=== PATIENT | female | born 1960 | race Caucasian/White ===

== ENCOUNTER → 2019-09-08 13:17 | Outpatient (CLI) | payer BC, SELFPAY ==
--- NOTE | 2019-09-08 13:22 | XR_ITS ---
PROCEDURE: XR SACROILIAC JOINT BI MIN 3V CLINICAL INDICATION: SACROILITIS Pain COMPARISON: No exams were available for comparison FINDINGS: No fracture or dislocation. No lytic or blastic change. There is normal mineralization. The joint spaces are well-preserved. No significant degenerative/arthritic changes. No erosive changes evident. Other findings:No evidence of fusion or lytic change IMPRESSION: Negative SI joints Dictated by: Harry Helms MD 09/08/2019 14:32 Electronically signed by Harry Helms MD in [place] 09/08/2019 14:32
== END ==
PROVIDERS: PCP Internal Medicine Adolescent Medicine; Visit Provider Internal Medicine Adolescent Medicine
DX: M46.1 Sacroiliitis, not elsewhere classified (principal)
CPT/HCPCS: 72202

== ENCOUNTER → 2019-12-08 15:40 | Outpatient (CLI) | payer BC, SELFPAY ==
[2019-12-08 16:09] LABS: Basophils % 0.5 % (0.1-2.0); Eosinophils # 0.1 K/mm3 (0.0-0.4); Eosinophils % 1.1 % (0.1-12.0); Hematocrit 38.5 % (37.0-47.0); Hemoglobin 12.7 g/dL (12.2-16.2); Lymphocytes # 2.2 K/mm3 (0.7-4.5); Lymphocytes % 35.2 % (10-50); Mean Corpuscular HGB Conc 32.9 g/dL (31.8-35.4); Mean Corpuscular Hemoglobin 32.6 pg (27.0-31.2); Mean Platelet Volume 7.8 fl (7.4-10.4); Monocytes # 0.3 K/mm3 (0.1-1.0); Monocytes % 4.9 % (1.7-9.3); Neutrophils # 3.7 K/mm3 (1.8-7.8); Neutrophils % 58.4 % (37.0-80.0); Platelet Count 247 K/mm3 (142-424); Red Blood Count 3.89 M/mm3 (4.20-5.40); Red Cell Distribution Width 15.9 % (11.5-17.5); White Blood Count 6.3 K/mm3 (4.8-10.8)
--- NOTE | 2019-12-08 16:23 | CT_ITS ---
PROCEDURE: CT ABDOMEN PELVIS WO/W CON CLINICAL INDICATION: ABD PAIN, RLQ Lower abdominal pain, right lower quadrant pain COMPARISON: No exams were available for comparison TECHNIQUE: IV Contrast: 75ML OPTIRAY 350 Oral Contrast None Axial images obtained with sagittal and coronal reformats. All CT scans at the facility use one or more dose reduction, viz: automated exposure control, ma/kV adjustment per patient size (including targeted exams where dose is matched to indication, i.e. head), or iterative reconstruction technique. FINDINGS: LOWER THORAX: There are atelectatic changes in the lung bases. Are ABDOMEN & PELVIS: The liver, spleen, adrenal glands, pancreas, and gallbladder have an unremarkable appearance. Unenhanced images show no evidence of renal calculi. There is a small hypodensity of the left kidney at 1 cm and may be due to small renal cyst. No intestinal obstruction or free air. Unremarkable appendix. There is colonic diverticulosis. There is minimal thickening of the wall of the sigmoid colon in its mid aspect with mild thickening of a diverticulum along the lateral aspect of the sigmoid colon. There is some minimal stranding of the fat in this region. Mild non complicated diverticulitis is a consideration. No abscess or perforation. There has been a prior hysterectomy. There is a small umbilical hernia which contains fat. No acute bony findings. Degenerative changes of the spine. IMPRESSION: Colonic diverticulosis with possible mild diverticulitis of the sigmoid colon. No abscess or perforation. Dictated by: Harry Helms MD 12/09/2019 07:05 Harry Helms MD in [place] 12/09/2019 07:05
[2019-12-08 16:33] LABS: Chloride 102 mmol/L (98-107); Potassium 3.8 mmoL/L (3.5-5.1); Sodium 141 mmol/L (136-145)
[2019-12-08 16:35] LABS: Amylase 73 U/L (30-110); Blood Urea Nitrogen 14 mg/dl (7-17); Estimated Glomerular Filt Rate 73 ml/min (>60); GFR (African American) 89 ML/MIN (>60)
[2019-12-08 16:36] LABS: Alanine Aminotransferase 18 U/L (12-78); Albumin Level 4.8 g/dl (3.5-5.0); Albumin/Globulin Ratio 1.7 (1.1-1.8); Alkaline Phosphatase 72 U/L (38-126); Anion Gap 13.8 mEq/L (5-15); Aspartate Amino Transferase 27 U/L (14-36); Bilirubin,Total 0.7 mg/dl (0.2-1.3); Calcium 9.9 mg/dl (8.4-10.2); Carbon Dioxide 29 mmol/L (22.0-30.0); Globulin 2.9 g/dL (1.3-3.2); Glucose 115 mg/dl (74-100); Lipase 143 U/L (23-300); Total Protein,Serum 7.7 g/dl (6.3-8.2)
== END ==
PROVIDERS: PCP Internal Medicine Adolescent Medicine; Visit Provider Internal Medicine Adolescent Medicine
DX: R10.31 Right lower quadrant pain (principal)
CPT/HCPCS: 36415; 74178; 80053; 82150; 83690; 85025; Q9967

== ENCOUNTER → 2020-05-12 10:35 | Outpatient (CLI) | payer BC, SELFPAY ==
[2020-05-12 11:39] LABS: Coronavirus 19 IgG Antibody Positive (Negative); Coronavirus 19 IgM Antibody Negative (Negative)
== END ==
PROVIDERS: Visit Provider Internal Medicine Gastroenterology
DX: Z01.812 Encounter for preprocedural laboratory examination (principal); Z20.822 Contact with and (suspected) exposure to COVID-19; Z12.11 Encounter for screening for malignant neoplasm of colon
CPT/HCPCS: 36415; 86328

== ENCOUNTER 2020-05-14 07:26 | Day surgery (SDC) | payer BC, SELFPAY ==
[2020-05-04 10:02] VITALS: BMI 25.6
[2020-05-14 07:52] VITALS: BP 140/87; PULSE 109; RESP 16; TEMP 36.1
[2020-05-14 08:08] LABS: POC Glucose,Bedside 135 (70-110)
--- NOTE | 2020-05-14 08:08 | P.PN_ITS ---
[facility] Anesthesia Checklist - Patient Identification Patient Identification: Arm Band - Structural Data Admitted From: Home Planned Operative Procedure/s: colonoscopy Consent for Planned Operative Procedure(s) Verified: Yes Verified Documents: Surgical Consent, History and Physical - NPO Status Verified Time NPO: 00:00 - Additional verifications Anesthesia Reactions: No - Airway Assessment C-Spine Mobility Assessed: Yes (mp2) TMJ Mobility Assessed: Yes Dentition: Good Dentition - Neurological Assessment Level of Consciousness: Awake, Alert - Anesthesia Plan Anesthesia Risk discussed: Yes Anesthesia Plan: Verified ASA Class: II Anesthesia Type: MAC [facility] History I have reviewed the patient's past medical history: Yes Medical History: Reports:: Diabetes Mellitus Type 2, Hyperlipidemia, Hypertension Denies:: Cancer, Diabetes Mellitus Type 1, Internal Pacemaker, MRSA, Seizures *Have you ever received a pneumonia vaccine?: No *Have you received a flu vaccine this season?: Yes Anesthesia experience/problems:: nac Other Surgeries: Yes: Hysterectomy-Partial, Other. No: Pacemaker Amputation: No Fractures: No - *Social History Last grade of school completed: High school graduate Smoking Status: Never smoker Alcohol Intake: never Substance Use Type: denies use *Occupational Status:: retired Housing: house Household Members: spouse *Travel in the last 8 weeks: None Family Hx:: Cancer, Diabetes, Hypertension
--- NOTE | 2020-05-14 08:29 | P.PCN_ITS ---
[facility] Procedure Note Procedure Note:: Colonoscopy Procedure Report: Colonoscopy with cold snare polypectomy Endoscopist: Cristofer Mckeon II, MD Referring physician: Edwin Leigh M.D. Date of Procedure: May 14, 2020 Equipment: Olympus 190 variable stiffness pediatric colonoscope Sedation: MAC sedation Indication: Mrs. Worthington is a 60-year-old female who is here for diagnostic colonoscopy secondary to her bout of diverticulitis in January 2020 or February 2020. She had lower abdominal pain and pressure but this has resolved. The patient does state that her father had colon cancer at the age of 63 and her paternal grandmother had colon cancer in her 80s. The patient reports no present abdominal pain, weight loss, change in her bowel habits or rectal bleeding. She did have her first colonoscopy 8 or 9 years ago at which time polyps were removed. Her last colonoscopy in 2017 (Dr. Luke Antunez) was normal. The patient has had prior partial hysterectomy. Procedure: Prior to the procedure, a history and physical exam was performed, and patient's medications and allergies were reviewed. The risks, benefits and alternatives of the sedation and procedure were discussed with the patient. All questions were answered and informed consent was obtained. The patient was brought to the procedure room. Patient identification and proposed procedure were verified by the physician and the nurse. The patient was placed in a left lateral decubitus position and the scope was passed under direct vision. Throughout the procedure, the patient's blood pressure, pulse, and oxygen saturations were monitored continuously. The colonoscopy was accomplished without difficulty. The patient tolerated the procedure well. Findings: On digital rectal examination there was normal rectal tone. There were no external hemorrhoids. The colonoscope was introduced through the anal canal to the rectum and advanced to the cecum. The ileocecal valve and appendiceal orifice were identified. The scope was advanced a short distance into the ileum which appeared grossly normal. The scope was then withdrawn into the colon. The cecum, ascending and transverse colon and mucosa were grossly normal. There was a 4 to 5 mm polyp in the descending colon removed via cold snare polypectomy. There were scattered extensive diverticuli throughout the descending and sigmoid colon (LEFT colon). The rectum itself was normal. Upon retroflexion within the rectum there were grade 1-2 internal hemorrhoids. The preparation was excellent throughout with [place] Preparation Score of 9. The cecal time was 12 minutes. Impression: 1. Diminutive descending colon polyp 2. Extensive left-sided diverticulosis 3. Grade 1-2 internal hemorrhoids Plan: Based upon the adenomatous polyp and the patient's family history, I would recommend repeat surveillance colonoscopy again in 5 years. I will discussed dietary measures and bulk fiber supplementation on a long-term daily maintenance basis.
[2020-05-14 08:38] VITALS: O2SAT 97
[2020-05-14 08:50] VITALS: BP 91/50; PULSE 89; RESP 18; TEMP 36.4; O2SAT 97
[2020-05-14 09:00] VITALS: BP 104/49; PULSE 91; RESP 18; O2SAT 97
[2020-05-14 09:05] VITALS: BP 106/70; PULSE 94; RESP 18; O2SAT 96
[2020-05-14 09:25] VITALS: BP 110/69; PULSE 91; RESP 18; O2SAT 97
== END 2020-05-14 09:36 | disposition home or self-care (01) ==
PROVIDERS: PCP Internal Medicine Adolescent Medicine; Visit Provider Internal Medicine Gastroenterology
PROC: 0DJD8ZZ Inspection of Lower Intestinal Tract, Via Natural or Artificial Opening Endoscopic (ICD-10-PCS; CPT 45378; principal; 2020-05-14 08:30)
DX: K57.30 Diverticulosis of large intestine without perforation or abscess without bleeding (principal); Z80.0 Family history of malignant neoplasm of digestive organs; Z86.010 Personal history of colon polyps; K63.5 Polyp of colon; K64.0 First degree hemorrhoids; E11.9 Type 2 diabetes mellitus without complications; E78.5 Hyperlipidemia, unspecified; I10 Essential (primary) hypertension; Z80.9 Family history of malignant neoplasm, unspecified; Z83.3 Family history of diabetes mellitus; Z82.49 Family history of ischemic heart disease and other diseases of the circulatory system; Z79.899 Other long term (current) drug therapy
CPT/HCPCS: 45385; 82962

== ENCOUNTER → 2020-06-09 12:19 | Outpatient (CLI) | payer BC, SELFPAY ==
[2020-06-09 13:11] LABS: Basophils % 0.5 % (0.1-2.0); Eosinophils # 0.1 K/mm3 (0.0-0.4); Eosinophils % 1.8 % (0.1-12.0); Hematocrit 34.4 % (37.0-47.0); Hemoglobin 11.4 g/dL (12.2-16.2); Lymphocytes # 1.9 K/mm3 (0.7-4.5); Lymphocytes % 44.3 % (10-50); Mean Corpuscular HGB Conc 33.2 g/dL (31.8-35.4); Mean Corpuscular Hemoglobin 31.5 pg (27.0-31.2); Mean Corpuscular Volume 94.8 fl (81-99); Mean Platelet Volume 8.3 fl (7.4-10.4); Monocytes # 0.3 K/mm3 (0.1-1.0); Monocytes % 6.5 % (1.7-9.3); Neutrophils % 46.9 % (37.0-80.0); Platelet Count 214 K/mm3 (142-424); Red Blood Count 3.63 M/mm3 (4.20-5.40); Red Cell Distribution Width 15.7 % (11.5-17.5); White Blood Count 4.2 K/mm3 (4.8-10.8)
[2020-06-09 13:41] LABS: Chloride 105 mmol/L (98-107); Sodium 140 mmol/L (136-145)
[2020-06-09 13:43] LABS: Blood Urea Nitrogen 18 mg/dl (7-17); Estimated Glomerular Filt Rate 85 ml/min (>60); GFR (African American) 103 ML/MIN (>60)
[2020-06-09 13:44] LABS: Alanine Aminotransferase 23 U/L (12-78); Albumin Level 4.8 g/dl (3.5-5.0); Albumin/Globulin Ratio 1.8 (1.1-1.8); Alkaline Phosphatase 77 U/L (38-126); Aspartate Amino Transferase 35 U/L (14-36); Bilirubin,Total 0.5 mg/dl (0.2-1.3); Calcium 10.2 mg/dl (8.4-10.2); Carbon Dioxide 24 mmol/L (22.0-30.0); Globulin 2.7 g/dL (1.3-3.2); Glucose 117 mg/dl (74-100); Magnesium 1.6 mg/dl (1.6-2.3); Total Protein,Serum 7.5 g/dl (6.3-8.2)
[2020-06-09 13:52] LABS: NT Pro Brain Natriuretic Pep. 22.9 pg/mL (0-125)
[2020-06-09 14:01] LABS: Free Thyroxine Index 2.9 ug/dL (5.93-13.13); T4 (Thyroxine) 9.5 ug/dl (5.53-11.0); Triiodothryronine (T3) Uptake 30 % (23.5-40.5)
[2020-06-09 14:14] LABS: Anion Gap 14.8 mEq/L (5-15); Potassium 3.8 mmoL/L (3.5-5.1)
== END ==
PROVIDERS: Visit Provider Internal Medicine Adolescent Medicine
DX: R06.00 Dyspnea, unspecified (principal); R00.0 Tachycardia, unspecified
CPT/HCPCS: 36415; 80053; 83735; 83880; 84436; 84443; 84479; 85025

== ENCOUNTER → 2020-06-18 11:39 | Outpatient (CLI) | payer BC, SELFPAY ==
--- NOTE | 2020-06-18 | CA_ITS ---
APPROVED REPORT Exam: Exercise Treadmill Technologist: Noemi Miller, Ht: 5 ft 4 in Wt: 153 lbs BSA: 1.75 m2 HR: 63 bpm BP: 138/61 mmHg Medical History Medications: Metformin,,,,, Losartan,,,,, Crestor,,,,, Bystolic,,,,, Stress Test Details Test: Manual Treadmill HR Resting HR: 70 bpm Max Heart Rate (APMHR): 159.059502 bpm Max HR Achieved: 122 bpm Target HR (85% APMHR): 135.200012 bpm % of APMHR: 76.73 Recovery HR: 80 bpm BP Resting BP: 136/71 mmHg Max BP: 152/82 mmHg Recovery BP: 141.0/62.0 mmHg ECG Resting ECG: NSR Clinical Reason for Termination: Dyspnea Exercise duration: 09:01 min Highest Stage Achieved: Exercise capacity: 10.1 METs Stress ECG Conclusion Stanley protocol completed 9:00 minutes. Max HR 122 % on PM 89 MET's 10.1 Test stopped due to SOA Symptoms: No CP, (+) SOA Arrhythmia/Ectopy: None ST-T Changes: <1.5mm ST Segment changes Conclusion: Negative stress but Pt did not acheive target HR Test Summary REST . . . . . . . Sitting REST . . . . . . . Standing REST 07:44 0.0 1.2 70 . 136/ 71 . . Stage 1 01:00 10.0 1.7 88 . . . . Stage 1 02:00 10.0 1.7 95 . . . . Stage 1 03:00 10.0 1.7 98 . 150/ 78 . . Stage 2 01:00 12.0 2.5 102 . . . . Stage 2 02:00 12.0 2.5 106 . . . . Stage 2 03:00 12.0 2.5 109 . 152/ 82 . . Stage 3 01:00 14.0 3.4 115 . . . . Stage 3 02:00 14.0 3.4 120 . . . . Stage 3 . . . . . . . Stage held Stage 3 . . . . . . . Protocol changed to Manual Treadmill Stage 3 03:00 10.0 3.0 121 . . . . Stage 3 . . . . . . . Stage resumed Stage 3 03:01 10.0 3.0 121 . . . Stop exercise at 09:01 RECOVERY 01:00 0.0 0.0 109 . . . . RECOVERY 02:00 0.0 0.0 92 . . . . RECOVERY 03:00 0.0 0.0 83 . 143/ 66 . . RECOVERY 04:00 0.0 0.0 80 . 143/ 66 . . RECOVERY 04:48 0.0 0.0 80 . 141/ 62 . . Electronically signed by : Benjamin Trejo, 06/20/2020 10:03:21
--- NOTE | 2020-06-18 11:44 | NM_ITS ---
APPROVED REPORT Exam: Nuclear Stress Test Indication: short of breath Patient Location: Outpatient Stress Tech: Noemi Miller [place] Tech:STELLA Barger RT(R)(N) Ht: 5 ft 4 in Wt: 153 lbs Bra Size: 36 d HR: 63 bpm BP: 138/61 mmHg BSA: 1.75 m2 BMI: 26.2 History: short of breath Procedure: Patient exercised on Stanley protocol 9 minutes and sec, resting heart rate 63 bpm, resting blood pressure 138/61 mmHg, with exercise maximum heart rate achived was 122 bpm which is Less than 85 % of the maximum predicted heart rate and blood pressure was 152/82 mmHg. Patient denied any complaint of chest pain. Patient has Good exercise capacity, achieved 10.1 METs of workload on treadmill, the blood pressure response to exercise was Adequate. Electrocardiogram Resting electrocardiogram shows sinus rhythm, with exercise there is less than 1.[address] segment depression noted from the baseline EKG. The EKG portion of the exercise Myoview was nondiagnostic as patient did not achieve the target heart rate. Cardiac Stress and Resting SPECT Images: Cardiac Stress and Resting SPECT images were obtained using technetium 99m Myoview 31.4 mCi stress and 9.96 mCi at rest. Gated SPECT for analysis of segmental wall motion and calculation of the ejection fraction also done, prone images were also obtained. Cardiac stress and resting SPECT images show uniform myocardial activity without segmental perfusion abnormality, computer derived ejection fraction is over 65% with no regional wall motion abnormality, right ventricle is normal size and contractility. Conclusion: 1. The EKG portion of the exercise Myoview was nondiagnostic as patient did not achieve the target heart rate. Patient has good exercise capacity achieved 10.1 METs of workload on treadmill, the blood pressure response to exercise was adequate, there was no exercise-induced chest discomfort. 2. No scintigraphic evidence of reversible ischemia seen at this level of exercise, computer derived ejection fraction is over 65% with no regional wall motion abnormality, right ventricle is normal size and contractility. Electronically signed by : Benjamin Trejo, 06/20/2020 10:18:13
== END ==
PROVIDERS: PCP Internal Medicine Adolescent Medicine; Visit Provider Internal Medicine Adolescent Medicine
DX: R06.00 Dyspnea, unspecified (principal)
CPT/HCPCS: 78452; 93017; A9502

== ENCOUNTER → 2021-06-07 10:16 | Outpatient (CLI) | payer BC, SELFPAY ==
--- NOTE | 2021-06-07 16:52 | MR_ITS ---
PROCEDURE INFORMATION: Exam: MR Left Lower Extremity Joint Without Contrast, Knee Exam date and time: 06/07/2021 4:59 PM Age: 61 years old Clinical indication: Pain; Knee; Left; Additional info: Acute pain of lt knee. Acute pain of left knee inferior to patella. Knee instability. No injury / trauma TECHNIQUE: Imaging protocol: MR of the Left lower extremity joint without contrast. Exam focused on the knee. COMPARISON: No relevant prior studies available. FINDINGS: Bones and cartilage: There is a subtle region of decreased T1 increased T2 signal in the subcortical bone marrow of the medial femoral condyle. Findings compatible with a small region of bone marrow edema. The overlying cartilage is intact. Cystic degenerative change could not be excluded. Incidental note made of scattered bone islands anterior aspect lateral femoral condyle as well as the mid aspect of the tibial plateau. Joint spaces: There is a small suprapatellar effusion. The mild regions of prepatellar bursitis are demonstrated. There is minimal fluid in the deep infrapatellar bursa compatible with bursitis. Medial meniscus: Intrasubstance degenerative changes are present within the posterior horn of the medial meniscus. There is no evidence of a meniscal tear. The anterior horn is intact. Lateral meniscus: The anterior and posterior horns of the lateral meniscus are intact. Anterior cruciate ligament: Unremarkable. No tear. Posterior cruciate ligament: The anterior and posterior cruciate ligaments are intact. The medial and lateral retinaculum are intact. The mediolateral collateral ligaments are intact. Medial capsule and supporting structures: Unremarkable. No tear. Lateral capsule and supporting structures: Unremarkable. No tear. Extensor mechanism of knee: The visualized portions of the quadriceps and patellar tendons are intact. Muscles: Unremarkable. Soft tissues: See Bones and cartilage finding. IMPRESSION: 1. Intrasubstance degenerative changes posterior horn medial meniscus. No evidence of meniscal tear. 2. Mild changes of prepatellar bursitis, deep infrapatellar bursitis. 3. Mild region of bone marrow edema medial femoral condyle. No findings to suggest a developing osteochondral lesion.
== END ==
PROVIDERS: PCP Internal Medicine Adolescent Medicine; Visit Provider Internal Medicine Adolescent Medicine
DX: M25.562 Pain in left knee (principal)
CPT/HCPCS: 73721

== ENCOUNTER → 2021-12-30 09:08 | Outpatient (CLI) | payer BC, SELFPAY ==
--- NOTE | 2021-12-30 09:11 | XR_ITS ---
FINAL REPORT CLINICAL HISTORY: Post menopause FINDINGS: DEXA BONE DENSITY Using L1-4, the bone mineral density of the spine is 1.078 g/cm2, corresponding to T-score of 0.3. Using the right hip, the bone mineral density of the femoral neck is 0.727 g/cm2, corresponding to a T-score of -1.1. Using the left hip, the bone mineral density of the femoral neck is 0.719 g/cm2, corresponding to a T-score of -1.2. FRAX 10 year fracture risk is 7.8 for a hip fracture and 0.6 for a major osteoporotic fracture. NOTE: T-score: Standard deviation compared with peak bone mass of young adult mean. *Following the recommendations of the International Society of Bone densitometry, classification of hip BMD is based on the lower of two T-scores; total hip or femoral neck. IMPRESSION: Diminished bone mineral density of the lumbar spine and hips consistent with osteopenia. Reviewed, Interpreted and Dictated by Nahum Boswell III, MD Transcribed by Kavitha Mays Authenticated and [facility]
== END ==
PROVIDERS: PCP Internal Medicine Adolescent Medicine; Visit Provider Internal Medicine Adolescent Medicine
DX: Z78.0 Asymptomatic menopausal state (principal); Z13.820 Encounter for screening for osteoporosis
CPT/HCPCS: 77080

== ENCOUNTER 2024-02-19 15:29 | Outpatient (CLI) | payer MEDICARE, SELFPAY ==
[2024-02-19 13:29] LABS: Basophils # 0.1 K/mm3 (0-0.2); Basophils % 1.2 % (0.1-2.0); Eosinophils # 0.2 K/mm3 (0.0-0.4); Hematocrit 39.4 % (37.0-47.0); Hemoglobin 12.9 g/dL (12.2-16.2); Lymphocytes # 1.7 K/mm3 (0.7-4.5); Mean Corpuscular HGB Conc 32.7 g/dL (31.8-35.4); Mean Corpuscular Hemoglobin 32.3 pg (27.0-31.2); Mean Corpuscular Volume 98.5 fl (81-99); Mean Platelet Volume 10.6 fl (7.4-10.4); Monocytes # 0.4 K/mm3 (0.1-1.0); Neutrophils # 2.7 K/mm3 (1.8-7.8); Neutrophils % 53.4 % (37.0-80.0); Platelet Count 205 K/mm3 (142-424); Red Cell Distribution Width 14.1 % (11.5-17.5)
[2024-02-19 14:38] LABS: Alanine Aminotransferase 23 U/L (12-78); Albumin/Globulin Ratio 2.2 (1.1-1.8); Alkaline Phosphatase 71 U/L (38-126); Anion Gap 13.9 mEq/L (5-15); Aspartate Amino Transferase 39 U/L (14-36); Bilirubin,Total 0.6 mg/dl (0.2-1.3); Blood Urea Nitrogen 24 mg/dl (7-17); Calcium 10.3 mg/dl (8.4-10.2); Carbon Dioxide 27 mmol/L (22.0-30.0); Chloride 104 mmol/L (98-107); Chol/HDL Ratio 2.9 (1-3.5); Cholesterol 147 mg/dl (140-200); Estimated Glomerular Filt Rate 72 ml/min (>60); GFR (African American) 87 ML/MIN (>60); Globulin 2.3 g/dL (1.3-3.2); Glucose 111 mg/dl (74-100); HDL Cholesterol 50 mg/dl (40-60); Potassium 4.9 mmoL/L (3.5-5.1); Sodium 140 mmol/L (136-145); Total Protein,Serum 7.3 g/dl (6.3-8.2); Triglycerides 120 mg/dl (30-150); VLDL Cholesterol 24 mg/dL (0-40)
[2024-02-19 14:46] LABS: Creatinine,Urine Random 72 mg/dL (Not Estab.)
[2024-02-19 14:48] LABS: Direct LDL Cholesterol 75.82 mg/dL (100-129)
[2024-02-19 14:54] LABS: Free T4 (Free Thyroxine) 1.23 ng/dl (0.78-2.19)
[2024-02-19 15:06] LABS: Hemoglobin A1C 6.5 % (4.0-6.0)
[2024-02-19 15:08] LABS: Thyroid Stimulating Hormone 1.58 uIU/mL (0.465-4.68)
[2024-02-19 15:17] LABS: HIV Combo NEGATIVE (Negative)
[2024-02-19 15:25] LABS: Hepatitis C Ab Qual. W/ RFX NEGATIVE (Negative)
[2024-02-19 16:02] LABS: 25-OH Vitamin D, Total 60.7 ng/mL (30-100)
== END 2024-02-19 23:59 | disposition home or self-care (01) ==
LOC: LAB.DROPOF 15:30
PROVIDERS: PCP Internal Medicine; Visit Provider Internal Medicine
DX: Z11.59 Encounter for screening for other viral diseases (principal); Z13.29 Encounter for screening for other suspected endocrine disorder; E11.9 Type 2 diabetes mellitus without complications; Z13.21 Encounter for screening for nutritional disorder; M85.80 Other specified disorders of bone density and structure, unspecified site; Z11.4 Encounter for screening for human immunodeficiency virus [HIV]; Z00.00 Encounter for general adult medical examination without abnormal findings; D64.9 Anemia, unspecified; Z13.220 Encounter for screening for lipoid disorders; E78.5 Hyperlipidemia, unspecified
CPT/HCPCS: 80053; 80061; 82043; 82306; 82570; 83036; 84439; 84443; 85025; 86803; 87389

== ENCOUNTER 2024-03-13 09:03 | Outpatient (CLI) | payer SELFPAY ==
--- NOTE | 2024-03-13 09:03 | CT_ITS ---
APPROVED REPORT Dental Therapist: CLINICAL INDICATION Risk stratification TECHNIQUE Image Acquisition: A 128 slice MDCT scanner (Bio[employer]orative Therapiesa View) was used for data acquisition. A noncontrast coronary calcium scan was performed. A CT attenuation threshold of 130 Hounsfield units (HU) was used for the detection of calcium in contiguous voxels of 1 sq mm in area to be counted as individual lesions. A tube voltage of 120 KVp was used. The patient received no medications prior to the coronary calcium CT. Image Reconstruction Transaxial images were reconstructed at 0.67 mm slide thickness. Data was reviewed interactively on an advanced workstation capable of 2 and 3-dimensional displays in all conventional reconstruction formats, including multiplanar reformations, maximum intensity projections, curved multiplanar reformations, and volume rendered reconstructions. When applicable, selected routine images describing the relevant coronary anatomy and pathology were saved and sent to PACS. Complications None Technical Quality Overall image quality was good. Total DLP (Dose-Length Product) is 179.9 mGy-cm. The reported value represents the total of one or more individual components during the CT acquisition of this date and at this time, and as such, the same value may appear in more than one CT report depending on the interpreting/reporting physicians. COMPARISON None FINDINGS CT Coronary Calcium Scoring LMA (Left Main Artery) = 0 LAD (Left Anterior Descending) = 0 LCX (Left Coronary Circumflex) = 0 RCA (Right Coronary Artery) = 0 Total Calcium Score = 8 using the AJ-130 method. There is also mild calcification present in the descending thoracic aorta. IMPRESSION -Coronary artery calcification is present. -Total Calcium Score (Agatston Score) = 8 using the AJ-130 method. -The observed calcium score of 8 is at 58th percentile for subjects of the same age, sex, and race/ethnicity. The interpretation of the calcium heart score is based on the following continuum*: 0 = no calcified plaque detected (risk of coronary artery disease is very low ??? less than 5%) 1-10 = calcium detected in extremely minimal levels (risk of coronary diseases is still low ??? less than 10%) 11-100 = mild levels of plaque detected with certainty (mild or minimal narrowing of heart arteries is likely) 101-400 = definite,at least moderate levels of plaque detected (relatively high risk of a heart attack within 3-5 years) >401-999 = extensive levels of plaque detected (high risk of heart attack, high levels of vascular disease are present, high likelihood of at least one significant coronary narrowing) *The calcium heart score quantifies the burden of coronary calcification/plaque in the coronary arteries. The calcium heart score does not evaluate the presence or the burden of non-calcified (i.e. soft) plaque. The coronary and cardiac findings of this Coronary Calcium CT were reviewed, reported, and signed by Edwin Alston MD (Video Player Mechanic). Conclusion Electronically signed by : Larissa Alston MD 03/15/2024 17:05:49
== END 2024-03-13 23:59 | disposition home or self-care (01) ==
PROVIDERS: PCP Internal Medicine; Visit Provider Internal Medicine
DX: I25.10 Atherosclerotic heart disease of native coronary artery without angina pectoris (principal)
CPT/HCPCS: 75571

== ENCOUNTER 2024-05-30 12:26 | Outpatient (CLI) | payer MEDICARE, SELFPAY ==
--- NOTE | 2024-05-30 12:31 | XR_ITS ---
FINAL REPORT CLINICAL HISTORY: Low back pain with radiation, no trauma COMPARISON: None FINDINGS: A single view of the pelvis was obtained. There is no acute fracture or dislocation. The visualized joint spaces are normally aligned. There is calcification in the projection of the left L5 transverse process. This calcification measures 5 mm and may represent a ureteral stone. IMPRESSION: No acute bony abnormality. Calcification left L5 transverse process may represent ureteral stone. Reviewed, Interpreted and Dictated by Rodrigo Warren MD Transcribed by Radha Schneider Authenticated and [facility]
--- NOTE | 2024-05-30 12:31 | XR_ITS ---
FINAL REPORT CLINICAL HISTORY: Low back pain with radiation, no trauma COMPARISON: None FINDINGS: 3 views of the lumbar spine were obtained. There is no acute fracture. There is no malalignment. The vertebrae are normal in height. The disc spaces are preserved. There is mild anterior osteophyte formation at L2-3 and L3-4. There is mild calcification of the abdominal aorta. IMPRESSION: Mild anterior osteophyte formation without acute process. Reviewed, Interpreted and Dictated by Rodrigo Warren MD Transcribed by Radha Schneider Authenticated and [facility]
== END 2024-05-30 23:59 | disposition home or self-care (01) ==
LOC: RAD 12:29
PROVIDERS: PCP Internal Medicine; Visit Provider Internal Medicine
DX: M54.50 Low back pain, unspecified (principal); M79.604 Pain in right leg; M79.605 Pain in left leg
CPT/HCPCS: 72100; 72170

== ENCOUNTER 2024-06-12 09:40 | Outpatient (RCR) | payer MEDICARE, SELFPAY ==
--- NOTE | 2024-06-12 10:46 | HMH.PTOPEV ---
PT Outpatient Evaluation Rehab PT Outpatient Evaluation Start: 06/12/24 09:45 Freq: Status: Active Protocol: Document 06/12/24 09:45 FRED (Rec: 06/12/24 10:46 FRED [id number]) E-signed By Victoriano Rizvi, PT Outpatient Therapy Subjective History Subjective History Pt is a 64 yof who presents to [facility] outpatient PT with complaints of LBP. Reports that her issues have been on/ off for 1-2 years. Reports that she has not had any issues for the past two weeks. Describes her symptoms has LBP that will radiate down the lateral portion of her Left leg. Reports that she is unsure if she needs PT. PMH: T2DM Occupation: Retired New diagnosis of cancer in past 12 No months? Chief Complaint Pain Symptom Type Sharp Symptoms Relieved By Ice,OTC Meds Symptoms Aggravated By Standing Prior Functional Limitations None Current Functional Limitations None Symptom Description Intermittent,Activity Dependent Level of pain today (0-10) 0 Pain scale - at its best (0-10) 0 Pain scale - at its worst (0-10) 10 Lumbopelvic Eval Posture Thoracic Spine Posture Standing Position Neutral Lumbar Spine Posture Standing Position Increased Lordosis Assistive device Assistive Devices None / NA Palapation tenderness bilateral Lumbar/Sacral Palpation Overall Comment 0/4 TTP throughout lumbar spine Range of Motion Lumbar Spine Active Flexion Range of 100% Motion (degrees) Lumbar Spine Active Extension Range of 100% Motion (degrees) Left Lumbar Spine Lateral Flexion Active 100% Range of Motion (degrees) Right Lumbar Spine Lateral Flexion 100% Active Range of Motion (degrees) Manual Muscle Test Bilateral Knee Extension Strength Grade 5 Normal Knee Flexion Strength Grade 5 Normal Hip Flexion Strength Grade 5 Normal Hip Abduction Strength Grade 5 Normal Hip Adduction Strength Grade 5 Normal DTR Rt Patellar 2+ Lt Patellar 2+ Rt Gastroc/Soleus 2+ Lt Gastroc/Soleus 2+ Altered Sensation Bilateral Comment Intact to LT globally Special Tests Lumbar Spine Screen Negative Oswestry Index Section 1 Pain Intensity The pain comes and goes and is moderate Section 2 Personal Care (Washing,Dresing) change my way of washing or dressing in order to avoid pain Section 3 Lifting lifting heavy weights off the floor, but I can manage light to medium Section 4 Walking I have some pain when walking but it does not increase with distance Section 5 Sitting I can sit in my favorite chair for as long as I like Section 6 Standing I have some pain on standing, but it does not increase with time Section 7 Sleeping I get no pain in bed Section 8 Social Life My social life is normal and gives me no extra pain Section 9 Traveling I get some pain when traveling , but none of my usual forms of travel m Section 10 Changing Degreee of Pain My pain fluctuates, but overall is definitely getting better Score and Risk Level Oswestry Sc 11 Oswestry Risk Level Mild Disability Outpatient Therapy Assessment Prognosis Rehab Potential Innapropriate for Skilled Therapy Comment Pt presents with no functional impairments this date. Skilled PT is not indicated at this time. Pt issued and reviewed HEP as a preventative measure. Clinical Impression Consistent with Diagnosis Yes Outpatient Therapy Plan of Care Treatment Plan May Include Therapeutic Exercise Including Home Yes Exercise Program Therapeutic Activities to Return to Yes Previous Functional/Work Level Frequency Times per week 1 Duration Number of Weeks 1 Addendums This patient is a candidate for social No or vocational rehab? Patient/Guardian verbally acknowledges Yes understanding of treatment program and consents to further treatment? Patient/Guardian verbally acknowledges Yes understanding of diagnosis, prognosis and goals for treatment? Eval Complexity PT Charges 96243 - Low Complexity Shoulder/Elbow Eval Shoulder Objective Measurements Elbow Objective Measurements PHYSICIAN CERTIFICATION: I certify the specified therapy services for Marina Worthington are required, authorized, and reviewed every 30 days.
== END 2024-06-12 23:59 | disposition home or self-care (01) ==
LOC: PT 09:40
PROVIDERS: PCP Internal Medicine; Visit Provider Internal Medicine
DX: M54.50 Low back pain, unspecified (principal); M79.604 Pain in right leg; M79.605 Pain in left leg
CPT/HCPCS: 97110; 97163; 97530

== ENCOUNTER 2024-11-26 08:58 | Outpatient (CLI) | payer MEDICARE, SELFPAY ==
--- OUTSIDE RECORDS SUMMARY | 2024-01-07 05:45 | XMS_ITS ---
Author Organization [facility] Address [address] [place] [address] Care Team Providers Care Damage Cutter Name Role Phone Edwin Leigh Primary Care Provider [phone] MaritaNeha esquivel [facility] [phone] REASON FOR VISIT yearly Encounters Encounter Location Date Provider Diagnosis [facility] [address] [place], [place] [address] 01/07/2024 Edwin Leigh Plan Of Treatment No Information Progress Notes * WORTHINGTONMarinaDOB:1960 ( 64 yo F)Acc No.[id number]:01/07/2024 Progress Notes Patient: Marina HERRING Provider: Anthony Leigh MD :1960 A ge:63 Y S ex:Female Date:01/07/2024 Address:[id number] Subjective: * Chief Complaints: * 1 . Yearly. * Medical History: Objective: * Vitals: Assessment: Plan: * Treatment: * * Electronic signature of Jason Leigh MD FAAP on 11/26/2024 at 09:12 AM EDT Sign off status: Pending * Provider: Anthony Leigh MD Date: 1 03/09/2023 Generated for Printi ng/Faxing/eTransmitting on: 09:12 AM EDT
--- OUTSIDE RECORDS SUMMARY | 2024-02-11 05:00 | XMS_ITS ---
Author Organization [facility] Address [address] [place] [address] Care Team Providers Care Motor And Generator Assembler Name Role Phone Edwin Leigh Primary Care Provider [phone] Neha [place] Unavailable [phone] REASON FOR VISIT Yearly Encounters Encounter Location Date Provider Diagnosis [facility] [address] [place], [place] [address] 02/11/2024 Edwin Leigh Plan Of Treatment No Information Progress Notes * ANDERMarinaDOB:1960 ( 64 yo F)Acc No.[id number]:02/11/2024 Progress Notes Patient: Marina HERRING Provider: Anthony Leigh MD :1960 A ge:64 Y S ex:Female Date:02/11/2024 Address:[id number] Subjective: * Chief Complaints: * 1 . Yearly. * Medical History: Objective: * Vitals: Assessment: Plan: * Treatment: * * Electronic signature of Jason Leigh MD FAAP on 11/26/2024 at 09:12 AM EDT Sign off status: Pending * Provider: Anthony Leigh MD Date: 0 02/11/2024 Generated for Printi ng/Faxing/eTransmitting on: 1 09:12 AM EDT
--- OUTSIDE RECORDS SUMMARY | 2024-05-10 17:30 | XMS_ITS ---
Author Organization [facility] Address [address] [place] [address] Care Team Providers Care Director Aeronautics Commission Name Role Phone Edwin Leigh Primary Care Provider Neha Kirkland Unavailable [phone] Migration, Provider Unavailable Unavailable Allergies Allergen (clinical drug ingredient) Drug/Non Drug Allergy documented on EMR Reaction Allergy Type Onset Date Status bisoprolol Bisoprolol rash Drug Allergy Activ e REASON FOR VISIT [facility] Conversion Encounter Medications Medication SIG (Take, Route, Frequency, Duration) Notes Start Date End Date Status ACCU-CHECK GUIDE TEST STRIPS GUIDE - TWICE DAILY; Duration: 90 DAYS DX: E11.9 *Please review for potential replacement for e-prescription and drug interaction check* Active Jardiance 25 MG TAKE 1 TABLET ONCE DAILY INTHE MORNING; Duration: 90 days Active ACCUCHEK FAST CLICK LANCETS FASTCLIX DIRECTED TWICE A DAY; Duration: 90 DAYS DX: E11.9 *Please review for potential replacement for e-prescription and drug interaction check* Active metFORMIN HCl 1000 MG 1 tab(s) orally 2 times a day; Duration: 90 Active Cozaar 100 MG 1 tab(s) orally once a day; Duration: 90 days Active Crestor 20 MG 1 tab(s) orally once a day; Duration: 90 days Active Finasteride 5 MG 1 tab(s) orally once a day; Duration: 90 days Active Aspirin 81 MG 1 TAB(S) ORALLY ONCE A DAY; Duration: 30 DAY(S) *Please review and pick correct strength[facility]formulatio n [facility]. If intended option is not shown, discontinue and re-order from Quick Search* Active Encounters Encounter Location Date Provider Diagnosis [facility] [address] [place] [address] 05/10/2024 Provider Migration Plan Of Treatment Medication Medication Name Sig Start Date Stop Date Notes ACCU-CHECK GUIDE TEST STRIPS GUIDE - TWICE DAILY; Duration: 90 DAYS DX: E11.9 *Please review for potential replacement for e-prescription and drug interaction check* Jardiance 25 MG TAKE 1 TABLET ONCE DAILY INTHE MORNING; Duration: 90 days ACCUCHEK FAST CLICK LANCETS FASTCLIX DIRECTED TWICE A DAY; Duration: 90 DAYS DX: E11.9 *Please review for potential replacement for e-prescription and drug interaction check* metFORMIN HCl 1000 MG 1 tab(s) orally 2 times a day; Duration: 90 Crestor 20 MG 1 tab(s) orally once a day; Duration: 90 days Finasteride 5 MG 1 tab(s) orally once a day; Duration: 90 days Progress Notes * Marina WORTHINGTONDOB:1960 ( 64 yo F)Acc No.[id number]:05/10/2024 Patient: Marina HERRING Provider: Cary Key :1960 A ge:64 Y S ex:Female Date:05/10/2024 [id number] Pcp:Edwin Leigh Subjective: * Chief Complaints: * 1 . [facility] * Medical History: * Medications: T aking Aspirin 81 MG TABLET 1 TAB(S) ORALLY ONCE A DAY , Notes to Pharmacist: *Please review and pick correct strength-formulation from [facility] options. If intended option is not shown, discontinue and re-order from Quick Search*, Taking Cozaar 100 MG Tablet 1 tab(s) orally once a day * Allergies: B isoprolol: rash. Objective: * Vitals: Assessment: Plan: * Treatment: * * Electronic signature of Hannah nettles Migration on 11/26/2024 at 09:12 AM EDT Sign off status: Pending * Provider: P rovider Migration Date: 0 05/10/2024 Generated for John hardy/Rudy/Miguel Aitting on: 1 09:12 AM EDT
--- OUTSIDE RECORDS SUMMARY | 2024-10-29 09:50 | XMS_ITS | Encounter Summary ---
Author Organization [facility] Address [address] [place] [id number] Care Team Providers Care Wire Annealer Name Role Phone Wilberto Carias DO Primary Care Provider + Reason for Referral * Diagnostic Imaging (Routine) - Authorized Specialty Diagnoses / Procedures Referred By Contac t Referred To Contact Radiology Diagnoses Osteopenia of lumbar spine Procedures DEXA Bone Density Axial Eliazar Silver MD [address] [facility] [address] [place] [address] Phone: tel: fax: [facility] [address] [address] Phone: tel: Referral ID Status Reason Start Date Expiration Date V isits Requested Visits Authorized [id number] Authorized 10/29/2024 01/28/2026 1 1 Reason for Visit * Reason Comments Gynecologic Exam Encounter Details Date Type Department Care Team (Late st Contact Info) Description 10/29/2024 9:50 AM EDT Office Visit [facility] [facility] [address] [place], [place] [id number] Eliazar Silver MD [address] [facility] [address] [place] [address] Women's annual routine gynecological examination (Primary Dx); History of hysterectomy; Osteopenia of lumbar spine Social History Tobacco Use Types Packs/Day Years Used Date Smoking Tobacco: Never Alcohol Use Standard Drinks/Week Comments No 0 (1 standard drink = 0.6 oz pur e alcohol) Comments No Sex and Gender Information Value Date Recorded Sex Assigned at Female 10/28/2024 1:10 PM EDT Legal Sex Female 1:32 PM EDT Gender Identity Not on file Sexual Orientation Straight 10/28/2024 1: 10 PM EDT documented as of this encounter Last Filed Vital Signs Vital Sign Reading Time Taken Comments Blood Pressure 128/72 10/29/2024 9:14 AM EDT Pulse - - Temperature - - Respiratory Rate 14 10/29/2024 9:14 AM EDT Oxygen Saturation - - Inhaled Oxygen Concentration - - Weight 62.1 kg (137 lb) 10/29/2024 9:14 AM EDT Height - - Body Mass Index 23.52 10/18/2023 10:36 AM EDT documented in this encounter Progress Notes * Eliazar Silver MD - 10/29/2024 9:50 AM EDT Subjective Chief Complaint Patient presents with Gynecologic Exam Marina Worthington is a 64 y.o. year old presenting to be seen for her annual exam. She is not sexually active. She exercises regularly: yes. She wears her seat belt: yes. She has concerns about domestic violence: no. She has noticed changes in height: no LINING [employer] SEWER screening history: Last mammogram: she reports her last mammogram was normal Last colonoscopy: she reports her last colonoscopy was normal Last DEXA: osteopenia. Health Maintenance for Postmenopausal Women Menopause is a normal process in which your ability to get comes to an end. This process happens slowly over many months or years, usually between the ages of 48 and 55. Menopause is complete when you have missed your menstrual period for 12 months. It is important to talk with your health care provider about some of the most common conditions that affect women after menopause (postmenopausal women). These include heart disease, cancer, and boneloss (osteoporosis). Adopting a healthy lifestyle and getting preventive care can help to promote your health and wellness. The actions you take can also lower your chances of developing some of these common conditions. What are the signs and symptoms of menopause? During menopause, you may have the following symptoms: Hot flashes. These can be moderate or severe. Night sweats. Decrease in sex drive. Mood swings. Headaches. Tiredness (fatigue). Irritability. Memory problems. Problems falling asleep or staying asleep. Talk with your health care provider about treatment options for your symptoms. Do I need hormone replacement therapy? Hormone replacement therapy is effective in treating symptoms that are caused by menopause, such abby flashes and night sweats. Hormone replacement carries certain risks, especially as you become older. If you are thinking about using estrogen or estrogen with progestin, discuss the benefits and risks with your health care provider. How can I reduce my risk for heart disease and stroke? The risk of heart disease, heart attack, and stroke increases as you age. One of the causes may be a change in the body's hormones during menopause. This can affect how your body uses dietary fats, triglycerides, and cholesterol. Heart attack and stroke are medical emergencies. There are many things that you can do to help prevent heart disease and stroke. Watch your blood pressure High blood pressure causes heart disease and increases the risk of stroke. This is more likely to develop in people who have high blood pressure readings or are overweight. Have your blood pressure checked: Every 3-5 years if you are 18-39 years of age. Every year if you are 40 years old or older. Eat a healthy diet Eat a diet that includes plenty of vegetables, fruits, low-fat dairy products, and lean protein. Do not eat a lot of foods that are high in solid fats, added sugars, or sodium. Get regular exercise Get regular exercise. This is one of the most important things you can do for your health. Most adults should: Try to exercise for at least 150 minutes each week. The exercise should increase your heart rate and make you sweat (moderate-intensity exercise). Try to do strengthening exercises at least twice each week. Do these in addition to the moderate-intensity exercise. Spend less time sitting. Even light physical activity can be beneficial. Other tips Work with your health care provider to achieve or maintain a healthy weight. Do not use any products that contain nicotine or tobacco. These products include cigarettes, chewing tobacco, and vaping devices, such as e-cigarettes. If you need help quitting, ask your health careprovider. Know your numbers. Ask your health care provider to check your cholesterol and your blood sugar (glucose). Continue to have your blood tested as directed by your health care provider. Do I need screening for cancer? Depending on your health history and family history, you may need to have cancer screenings at different stages of your life. This may include screening for: Breast cancer. Cervical cancer. Lung cancer. Colorectal cancer. What is my risk for osteoporosis? After menopause, you may be at increased risk for osteoporosis. Osteoporosis is a condition in which bone destruction happens more quickly than new bone creation. To help prevent osteoporosis or the bone fractures that can happen because of osteoporosis, you may take the following actions: If you are 19-50 years old, get at least 1,000 mg of calcium and at least 600 international units (IU) of vitamin D per day. If you are older than age 50 but younger than age 70, get at least 1,200 mg of calcium and at [id number] international units (IU) of vitamin D per day. If you are older than age 70, get at least 1,200 mg of calcium and at least 800 international units(IU) of vitamin D per day. Smoking and drinking excessive alcohol increase the risk of osteoporosis. Eat foods that are rich in calcium and vitamin D, and do weight-bearing exercises several times each week as directed by yourhealth care provider. How does menopause affect my mental health? Depression may occur at any age, but it is more common as you become older. Common symptoms of depression include: Feeling depressed. Changes in sleep patterns. Changes in appetite or eating patterns. Feeling an overall lack of motivation or enjoyment of activities that you previously enjoyed. Frequent crying spells. Talk with your health care provider if you think that you are experiencing any of these symptoms. General instructions See your health care provider for regular wellness exams and vaccines. This may include: Scheduling regular health, dental, and eye exams. Getting and maintaining your vaccines. These include: Influenza vaccine. Get this vaccine each year before the flu season begins. Pneumonia vaccine. Shingles vaccine. Tetanus, diphtheria, and pertussis (Tdap) booster vaccine. Your health care provider may also recommend other immunizations. Tell your health care provider if you have ever been abused or do not feel safe at home. Summary Menopause is a normal process in which your ability to get comes to an end. This condition causes hot flashes, night sweats, decreased interest in sex, mood swings, headaches,or lack of sleep. Treatment for this condition may include hormone replacement therapy. Take actions to keep yourself healthy, including exercising regularly, eating a healthy diet, watching your weight, and checking your blood pressure and blood sugar levels. Get screened for cancer and depression. Make sure that you are up to date with all your vaccines. No Additional Complaints Reported The following portions of the patient's history were reviewed and updated as appropriate:vital signs, allergies, current medications, past medical history, past social history, past surgical history,and problem list. Review of Systems Pertinent items are noted in HPI. Physical Exam Objective BP 128/72 Resp 14 Wt 62.1 kg (137 lb) LMP (LMP Unknown) BMI 23.52 kg/m?? General: well developed; well nourished no acute distress mentation appropriate Constitutional: healthy Skin: No suspicious lesions seen Thyroid: normal to inspection and palpation Lungs: breathing is unlabored clear to auscultation bilaterally Heart: regular rate and rhythm, S1, S2 normal, no murmur, click, rub or gallop Breasts: Examined in supine position Symmetric without masses or skin dimpling Nipples normal without inversion, lesions or discharge There are no palpable axillary nodes S/p reduction mammoplasty Abdomen: soft, non-tender; no masses no umbilical or inginual hernias are present no hepato-splenomegaly Pelvis: Clinical staff was present for exam External genitalia: normal appearance of the external genitalia including Bartholin's and [place]'s glands. : urethral meatus normal; urethral hypermobility is absent. Vaginal: normal pink mucosa without prolapse or lesions. Cervix: absent Uterus: absent Adnexa: normal bimanual exam of the adnexa. Rectal: digital rectal exam not performed; anus visually normal appearing. Cystocele GRADE 1 Musculoskeletal: negative Neuro: normal without focal findings, mental status, speech normal, alert and oriented x3, and ANISHA Psych: oriented to time, place and person, mood and affect are within normal limits, pt is a good historian; no memory problems were noted Lab Review No data reviewed Imaging DEXA Mammogram report Assessment & Plan ASSESSMENT 1. Women's annual routine gynecological examination 2. History of hysterectomy 3. Osteopenia of lumbar spine PLAN Orders Placed This Encounter Procedures DEXA Bone Density Axial Standing Status: Future Expected Date: 11/03/2024 Expiration Date: 10/29/2025 Scheduling Instructions: Please see if this can be performed with up upcoming mammogram scheduled at [facility] Reason for Exam:: follow up No orders of the defined types were placed in this encounter. Follow up: 1 year(s) This note was electronically signed. Eliazar Silver MD October 29, 2024 documented in this encounter Plan of Treatment Upcoming Encounters Date Type Department Care Team (Late st Contact Info) Description 11/02/2025 11:00 AM EDT Office Visit [facility] OBGYN [address] [facility] [address] [place] [phone] Eliazar Silver MD [address] [address] Scheduled Orders Name Type Priority Associated Diagnoses Orde r Schedule DEXA Bone Density Axial Imaging Routine Osteopenia of lumbar spine Expected: 11/03/2024, Expires: 10/29/2025 documented as of this encounter Visit Diagnoses Diagnosis Women's annual routine gynecological examination- Primary History of hysterectomy Acquired absence of both cervix and uterus Osteopenia of lumbar spine documented in this encounter Care Teams Wire Annealer Relationship Specialty Start Date End Date Wilberto Carias DO [address] [place] [id number] PCP - General Internal Medicine 10/27/24 documented as of this encounter
--- OUTSIDE RECORDS SUMMARY | 2024-11-04 10:36 | XMS_ITS | Encounter Summary ---
Author Organization [facility] ([place], [place], [place], [place]) Address [address] [place] [address] Care Team Providers Care Technical Sales Engineer Name Role Phone Wilberto Carias MD Primary Care Provider + Reason for Referral * Mammography (Routine) - Closed Specialty Diagnoses / Procedures Referred By Hosea angeles Referred To Contact Radiology Diagnoses Visit for screening mammogram Procedures MM digital mammo screen with jacob bilateral Edwin Leigh MD [address] [place] [address] Phone: tel: fax: [address] [place] [phone] Phone: tel: fax: Referral ID Status Reason Start Date Expiration Date Visits Re quested Visits Authorized [id number] Closed 11/04/2024 11/04/2025 1 1 Reason for Visit * Mammography (Routine) - Closed Specialty Diagnoses / Procedures Referred By Hosea t Referred To Contact Radiology Diagnoses Visit for screening mammogram Procedures MM digital mammo screen with jacob bilateral Edwin Leigh MD [address] [place] [address] Phone: tel: fax: [place] [address] [place] [address] Phone: tel: fax: Referral ID Status Reason Start Date Expiration Date Visits Re quested Visits Authorized [id number] Closed 11/04/2024 11/04/2025 1 1 Encounter Details Date Type Department Care Team (Latest Contact Info) Description 11/04/2024 10:36 AM EDT - 11/04/2024 11:59 PM EDT Hospital Encounter [facility] [address] [place] [address] Wilberto Carias MD [address] [facility] [address] [place] [address] Visit for screening mammogram Discharge Disposition: Home or Self Care Social History Tobacco Use Types Packs/Day Years Used Date Smoking Tobacco: Never Assessed Family and Community Support Answer Carlos e Recorded Help with Day to Day Activities Not on file 02/23/2023 Feeling Lonely or Isolated Not on file 02/23 Educational Attainment Answer Date Rj rded Speak language other than Spanish at home Not on file 02/23/2023 Want help with school or training Not on file 02/23/2023 Substance Use Answer Date Recorded Used prescription meds for non-medical reasons N ot on file 02/23/2023 Used illegal drugs past 12 months Not on file 02/23/2023 Comments No Sex and Gender Information Value Date Recorded Sex Assigned at Female 08/02/2021 3:31 PM CDT Legal Sex Female 3:31 PM CDT Gender Identity Female 08/02/2021 3:31 PM CDT Sexual Orientation Straight 10/17/2024 12 :32 PM CDT documented as of this encounter Last Filed Vital Signs Vital Sign Reading Time Taken Comments Blood Pressure - - Pulse - - Temperature - - Respiratory Rate - - Oxygen Saturation - - Inhaled Oxygen Concentration - - Weight 62.6 kg (138 lb) 11/04/2024 10:58 AM EDT Height 162.6 cm (5' 4 ) 11/04/2024 10:58 AM EDT Body Mass Index 23.69 11/04/2024 10:58 AM EDT documented in this encounter Plan of Treatment Upcoming Encounters Date Type Department Care Team (Late st Contact Info) Description 11/09/2025 11:45 AM EDT Appointment [address] [place] [phone] documented as of this encounter Procedures Procedure Name Priority Date/Time Associated Diagnosis Comments MM DIGITAL MAMMO SCREEN WITH JACOB BILATERAL Routine 11/04/2024 10:58 AM EDT Visit for screening mammogram documented in this encounter Results * MM digital mammo screen with jacob bilateral (11/04/2024 10:58 AM EDT) Anatomical Region Laterality Modality Breast Bilateral Mammography 11/04/2024 11:4 2 AM EDT Impressions 11/04/2024 11:46 AM EDT FINAL IMPRESSION: Stable mammogram. No findings suspicious for malignancy. Bi-RADS: ACR BI-RADS 1: Negative. RECOMMENDATIONS: Annual screening mammography. This report will serve as the order for the recommended imaging studies/procedures. A letter including results and recommendations was sent to the patient. Density notification was included for all patients. Patient information was entered into a reminder system with a target due date for the next mammogram. At our facility, a [place] marker is positioned over a visible skin lesion and a linear marker is used to indicate a scar. A triangular marker is placed on a self reported palpable finding. Note: Mammography does not detect approximately 10-15% of breast cancers. The [employer] recommends supplemental yearly screening using Breast MRI in high risk patients. All dense and heterogeneously dense patients, as well as those patients at intermediate risk for lifetime development of breast cancer who desire additional screening are also appropriate candidates for supplemental breast MRI. A normal mammogram does not completely exclude the presence of breast cancer, especially if there is an abnormal finding on physical exam. When clinically indicated, a biopsy should not be deferred because of a normal mammogram report. Narrative 11/04/2024 11:46 AM EDT PROCEDURE: Digital screening mammogram with Digital Breast Tomosynthesis (DBT). REASON FOR EXAM: Routine screening. FAMILY HISTORY: No family history of breast cancer. COMPARISON STUDY: 2023 through 2016 from [facility] FINDINGS: Craniocaudal and mediolateral oblique images of both breasts were obtained in 2D and DBT modes. Synthesized views were reconstructed from DBT data. Breast parenchymal density: The breasts are heterogeneously dense, which may obscure small masses. There is no evidence of dominant mass, architectural distortion, or suspicious calcifications. The mammogram was interpreted with the benefit of computer aided detection (CAD). us Edwin Leigh MD IMG MAMMOGRAPHY ORDERABLES F inal Result documented in this encounter Visit Diagnoses Diagnosis Visit for screening mammogram documented in this encounter Care Teams Technical Sales Engineer Relationship Specialty Start Date End Date Wilberto Carias MD [address] [place] [id number] PCP - General Internal Medicine 11/04/24 documented as of this encounter
--- OUTSIDE RECORDS SUMMARY | 2024-11-26 09:11 | XMS_ITS | Clinical Summary ---
Author Organization Healthcare Address [address] [place] [address] Care Team Providers Care Youth Development Specialist Name Role Phone Wilberto Carias DO Primary Care Provider [phone] Family History Medical History Relation Name Comments Colon cancer Father Colon cancer Mother Diabetes Mother Hypertension Mother Relation Name Status Comments Father Mother Social History Tobacco Use Types Packs/Day Years Used Date Smoking Tobacco: Never Comments Unknown Sex and Gender Information Value Date Recorded Sex Assigned at Not on file Legal Sex Female 7:05 PM EDT Gender Identity Not on file Sexual Orientation Not on file Last Filed Vital Signs Vital Sign Reading Time Taken Comments Blood Pressure - - Pulse - - Temperature - - Respiratory Rate - - Oxygen Saturation - - Inhaled Oxygen Concentration - - Weight 70.3 kg (155 lb 0.1 oz) 12/14/2016 9:32 A M EST Height 165.1 cm (5' 5 ) 12/14/2016 9:32 AM EST Body Mass Index 25.79 12/14/2016 9:32 AM EST Plan of Treatment Upcoming Encounters Date Type Department Care Team (Late st Contact Info) Description 04/03/2025 11:30 AM EST Ovarian Cancer Screening [facility] Gynecology [address] [facility], [address] [place] [address] Health Maintenance Due Date Last Done Comments [facility]-Bone Density Scan 1959 [facility]-Depression Screening 1959 [facility]-Hepatitis C Screening 1959 [facility]-/Child/Adol SDOH Screenings 1959 [facility]- SDOH Screenings 1977 [facility]-Adult SDOH Screenings 1977 CT Colonography 02/03/2004 Colonoscopy 02/03/2004 FIT-DNA 02/03/2004 FIT 02/03/2004 FOBT 02/03/2004 Sigmoidoscopy 02/03/2004 [facility]-Colorectal Cancer Screening 02/03/2004 [id number] Vaccine ( season) 2024 12/06/2021, 12/01/2020, 05/05/2020, Additional history exists [facility]-Influenza Vaccine (#1) 10/06/202412/25, 11/23/2022, 12/12/2021, Additional history exists [facility]-Breast Cancer Screening 11/01/202510/07, 11/02/2023, 10/31/2022, Additional history exists [facility]-DTaP,Tdap,and Td Vaccines (3 - Td or Tdap) 05/29/2028 05/29/2018, 11/10/2017 [facility]-Hepatitis A Vaccines Aged Out 05/16/2018, 07/2017 No longer eligible based on patient's age to complete this topic [facility]-Pneumococcal Vaccine: 50+ Years Completed 12/12/2021 [facility]-RSV Vaccine: 60+ Years or Completed 01/01/2023 [facility]-Zoster Vaccines Completed 07/04/2023, 01/01/2023, 03/25/2016 HPV Vaccines Aged Out No longer eligi ble based on patient's age to complete this topic [facility]-HIB Vaccines Aged Out No longer e ligible based on patient's age to complete this topic [facility]-IPV Vaccines Aged Out No longer e ligible based on patient's age to complete this topic [facility]-Rotavirus Vaccines Aged Out No lo nger eligible based on patient's age to complete this topic Insurance JESSIE Care Teams Youth Development Specialist Relationship Specialty Start Date End Date Wilberto Carias DO [address] [place] [id number] PCP - General 04/04/24
--- OUTSIDE RECORDS SUMMARY | 2024-11-26 09:11 | XMS_ITS | Referral Summary ---
Author Organization [employer] ([place], [place], [place], [place]) Address [address] [place] [address] Care Team Providers Care Punch Press Operator Name Role Phone Wilberto Carias MD Primary Care Provider + Encounters Date Type Department Care Team Description 11/04/2024 Outside Orders [facility] [address] [facility] [address] [place] [phone] Wilberto Carias MD Visit for screening mammogram (Primary Dx) 11/04/2024 Travel 11/04/2024 10:36 AM EDT - 11/04/2024 11:59 PM EDT Hospital Encounter [address] [place] [phone] Wilberto Carias MD Visit for screening mammogram Discharge Disposition: Home or Self Care from Last 3 Months Social History Tobacco Use Types Packs/Day Years Used Date Smoking Tobacco: Never Assessed Family and Community Support Answer Carlos e Recorded Help with Day to Day Activities Not on file 02/23/2023 Feeling Lonely or Isolated Not on file 02/23 Educational Attainment Answer Date Rj rded Speak language other than Polish at home Not on file 02/23/2023 Want [...] Orientation Straight 10/17/2024 12 :32 PM CDT Last Filed Vital Signs Vital Sign Reading Time Taken Comments Blood Pressure - - Pulse - - Temperature - - Respiratory Rate - - Oxygen Saturation - - Inhaled Oxygen Concentration - - Weight 62.6 kg (138 lb) 11/04/2024 10:58 AM EDT Height 162.6 cm (5' 4 ) 11/04/2024 10:58 AM EDT Body Mass Index 23.69 11/04/2024 10:58 AM EDT Plan of Treatment Upcoming Encounters Date Type Department Care Team (Late st Contact Info) Description 11/09/2025 11:45 AM EDT Appointment [address] [phone] Procedures Procedure Name Priority Date/Time Associated Diagnosis Comments MM DIGITAL MAMMO SCREEN WITH JACOB BILATERAL Routine 11/04/2024 10:58 AM EDT Visit for screening mammogram from Last 3 Months Results * MM digital mammo screen with [...] the next mammogram. At our facility, a washoe marker is positioned over a visible skin lesion and a linear marker is used to indicate a scar. A triangular marker is placed on a self reported palpable finding. Note: Mammography does not detect approximately 10-15% of breast cancers. The [employer] recommends supplemental yearly screening [...] cancer. COMPARISON STUDY: 2023 through 2016 from [facility] FINDINGS: Craniocaudal and mediolateral oblique images of both breasts were obtained in 2D and DBT modes. Synthesized views were reconstructed from DBT data. Breast parenchymal density: The breasts are heterogeneously dense, which may obscure small masses. There is no evidence of dominant mass, architectural distortion, or suspicious calcifications. The mammogram was interpreted with the benefit of computer aided detection (CAD). Edwin Leigh MD IMG MAMMOGRAPHY ORDERABLES F inal Result from Last 3 Months Insurance MEDICARE PART A B Care Teams Punch Press Operator Relationship Specialty Start Date End Date Wilberto Carias MD [address] [place] [id number] PCP - General Internal Medicine 11/04/24
--- OUTSIDE RECORDS SUMMARY | 2024-11-26 09:11 | XMS_ITS | Clinical Summary ---
Author Organization [employer] ([place], [place], [place], [place]) Address [address] [place] [address] Care Team Providers Care Wire Loop Machine Operator Name Role Phone Wilberto Carias MD Primary Care Provider + Encounters Date Type Department Care Team Description 11/04/2024 10:36 AM EDT - 11/04/2024 11:59 PM EDT Hospital Encounter [facility] Breast [address] [place] [phone] Wilberto Carias MD Visit for screening mammogram Discharge Disposition: Home or Self Care 11/04/2024 Outside Orders [facility] Breast [address] [place] [phone] Wilberto Carias MD Visit for screening mammogram (Primary Dx) 11/04/2024 Travel from Last 3 Months Family History Medical History Relation Name Comments Ovarian cancer Mother Relation Name Status Comments Mother Social History Tobacco Use Types Packs/Day Years Used Date Smoking Tobacco: Never Assessed Family and Community Support Answer Carlos e Recorded Help with Day to Day Activities Not on file 02/23/2023 Feeling Lonely or Isolated Not on file 02/23 Educational Attainment Answer Date Rj rded Speak language other than Tongan at home Not on file 02/23/2023 Want [...] Info) Description 11/09/2025 11:45 AM EDT Appointment [address] [phone] Health Maintenance Due Date Last Done Comments CT Colonography 1959 Colonoscopy 1959 Colorectal Cancer Screening 1959 DXA SCAN 1959 FOBT/FIT 1959 Fit-DNA (Cologuard) 1959 Sigmoidoscopy 1959 Depression Screening (12+) 1971 Tobacco Cessation Counseling and Screening (12+) 1971 HIV Screening 1974 Hepatitis C Screening 1977 Pap Smear 02/03/1980 Lipid Panel 02/03/2004 Falls Risk Screening 02/06/2024 COVID-19 VACCINE (2024-2 6 season) 2024 12/06/2021, 12/01/2020, 05/05/2020, Additional history exists Influenza Vaccine (#1) 2024 12/12/2021, 2019 Medicare IPPE (Welcome to Medicare) [id number] 10/06/2024 Breast Cancer Screening 11/04/2026 11/05/19 25, 11/02/2023, 10/31/2022, Additional history exists DTAP/TDAP/TD VACCINES (3 - T d or Tdap) 05/29/2028 05/29/2018, 11/10/2017 Respiratory Syncytial Virus (RSV) Adult or (1 - 1-dose 75+ series) 2034 Pneumococcal 50+ years Completed 12/12/2021 Shingles Vaccine (Zoster) Completed 2023, 01/01/2023, 03/25/2016 Procedures Procedure Name Priority Date/Time Associated Diagnosis [...] the next mammogram. At our facility, a noatak marker is positioned over a visible skin lesion and a linear marker is used to indicate a scar. A triangular marker is placed on a self reported palpable finding. Note: Mammography does not detect approximately 10-15% of breast cancers. The [employer] recommends supplemental yearly screening [...] cancer. COMPARISON STUDY: 2023 through 2016 from [facility] FINDINGS: Craniocaudal and mediolateral oblique images of [...] inal Result from Last 3 Months Insurance [place] [id number] MEDICARE PART A B Care Teams Wire Loop Machine Operator Relationship Specialty Start Date End Date Wilberto Carias MD [address] [place] [address] PCP - General Internal Medicine 11/04/24
--- OUTSIDE RECORDS SUMMARY | 2024-11-26 09:12 | XMS_ITS | Clinical Summary ---
Author Organization [facility] Address [address] [place] [address] Care Team Providers Care Graphics Editor Name Role Phone Wilberto Carias DO Primary Care Provider + Allergies No known active allergies Medications metFORMIN (GLUCOPHAGE) 1000 MG tablet 05/05/2016 Acti ve ONE TOUCH ULTRA TEST test strip 05/05/2016 Act sultana losartan (COZAAR) 100 MG tablet 05/05/2016 Active Calcium Carb-Cholecalcif francesca (CALCIUM 600 + D) 600-200 MG-UNIT tablet Take 1 tablet by mouth Daily. Active aspirin 81 MG chewable tablet Chew 1 tablet Daily. Active rosuvastatin (CRESTOR) 20 MG tablet 08/20/2019 Active Jardiance 25 MG tablet tablet 08/28/2021 Activ e pravastatin (PRAVACHOL) 20 MG tablet 1 tab(s) orally once a day (at bedtime) Active Active Problems Problem Noted Date Diagnosed Date Osteopenia of lumbar spine 10/18/2023 Overview (10/18/2023): DEXA 2021 Family history of ovarian cancer 10/18/2023 Overview (10/18/2023): Mother age 87 Negative genetic screening Women's annual routine gynecological examination 10/06/2021 History of hysterectomy 10/06/2021 Screening for breast cancer 06/12/2016 Encounters Date Type Department Care Team Description 10/30/2024 Patient rounding ([facility] only) [facility] [address] [facility] [place] [phone] Eliazar Silver MD 10/29/2024 9:50 AM EDT Office Visit [facility] [address] [facility] [address] [place] [address] Eliazar Silver MD Women's annual routine gynecological examination (Primary Dx); History of hysterectomy; Osteopenia of lumbar spine 10/29/2024 Travel from Last 3 Months Family History Medical History Relation Name Comments Colon cancer Father Diabetes Mother Heart disease Mother Hypertension Mother Ovarian cancer Mother Relation Name Status Comments Father Mother [...] Orientation Straight 10/28/2024 1: 10 PM EDT Last Filed Vital Signs Vital Sign Reading Time Taken Comments Blood Pressure 128/72 10/29/2024 9:14 AM EDT Pulse - - Temperature 36.4 C (97.5 F) 10/02/2019 1:31 PM EDT Respiratory Rate 14 10/29/2024 9:14 AM EDT Oxygen Saturation - - Inhaled Oxygen Concentration - - Weight 62.1 kg (137 lb) 10/29/2024 9:14 AM EDT Height 162.6 cm (5' 4 ) 10/18/2023 10:36 AM EDT Body Mass Index 23.52 10/18/2023 10:36 AM EDT Plan of Treatment Upcoming Encounters Date Type Department Care Team (Late st Contact Info) Description 11/02/2025 11:00 AM EDT Office Visit [facility] [address] [facility] [address] [place] [address] Eliazar Silver MD [address] [address] Health Maintenance Due Date Last Done Comments DIABETIC EYE EXAM 1969 DIABETIC FOOT EXAM 1969 URINE MICROALBUMIN-CREATININ E RATIO (uACR) 1969 COLOGUARD 02/03/2004 COLON CANCER SCREENING 5 YEA R SIGMOIDOSCOPY 02/03/2004 CT COLONOGRAPHY 02/03/2004 FECAL OCCULT BLOOD TEST 02/03/2004 FIT Testing (1 year) 02/03/2004 ANNUAL WELLNESS VISIT 06/12/2016 HEMOGLOBIN A1C 06/12/2016 HEPATITIS C SCREENING 06/12/2016 DXA SCAN 12/31/2023 12/30/2021, 06/30/2016 INFLUENZA VACCINE 09/05/2024 12/26/2023, , 12/12/2021, Additional history exists COVID-19 Vaccine (2024-2 6 season) 2024 12/06/2021, 12/01/2020, 05/05/2020, Additional history exists MAMMOGRAM 11/01/2025 11/02/2023, 10/07, 10/31/2022, Additional history exists TDAP/TD VACCINES (3 - Td or Tdap) 05/29/2028 019, 11/10/2017 COLONOSCOPY 10/06/2030 10/06/2020, 04/0 10/2020, 10/04/2010 COLORECTAL CANCER SCREENING 10/06/2030 Pneumococcal Vaccine 50+ Completed 12/12/2021 ZOSTER VACCINE Completed 07/04/2023, 12/07, 03/25/2016 Procedures Procedure Name Priority Date/Time Associated Diagnosis Comments SCANNED - MAMMO 10/31/2022 SCANNED - DEXA 12/30/2021 SCANNED - COLONOSCOPY 05/14/2020 from Last 3 Months or Most Recently Relevant to Health Maintenance Results * SCANNED - MAMMO (10/31/2022) Anatomical Region Laterality Modality Other Eliazar Silver MD CHART REVIEW TABS Final Result * SCANNED - DEXA (12/30/2021) Anatomical Region Laterality Modality Other Eliazar Silver MD CHART REVIEW TABS Final Result * SCANNED - COLONOSCOPY (05/14/2020) Eliazar Silver MD CHART REVIEW TABS Final Result from Last 3 Months or Most Recently Relevant to Health Maintenance Insurance MEDICARE A & B Care Teams Graphics Editor Relationship Specialty Start Date End Date Wilberto Carias DO [address] [place] [address] PCP - General Internal Medicine 10/27/24
--- OUTSIDE RECORDS SUMMARY | 2024-11-26 09:12 | XMS_ITS | Patient Health Record ---
Author Organization [facility] VALERIY Manriquez [place] Address [address] [place] [address] Care Team Providers Care Net Mvc Developer Name Role Phone Edwin Leigh Primary Care Provider Neha Kirkland Unavailable [phone] Migration, Provider Unavailable Unavailable Allergies Allergen (clinical drug ingredient) Drug/Non Drug Allergy documented on EMR Reaction Allergy Type Onset Date Status bisoprolol Bisoprolol rash Drug Allergy Activ e Reason For Referral Reason [facility] Referral Organization [facility] JOEL GALLAGHER Referring Provider First Name Neha Referring Provider Last Name Marita Referring Provider Speciality Family Pra txice Referral Priority Routine Medications Medication SIG (Take, Route, Frequency, Duration) [...] 2 times a day; Duration: 90 Active Crestor 20 MG 1 tab(s) orally once a day; Duration: 90 days Active Finasteride 5 MG 1 tab(s) orally once a day; Duration: 90 days Active Cozaar 100 MG 1 tab(s) orally once a day; Duration: 90 days Active Aspirin 81 MG 1 TAB(S) ORALLY ONCE A DAY; Duration: 30 DAY(S) *Please review and pick correct strength-formulatio n from [employer] options. If intended option is not shown, discontinue and re-order from Quick Search* Active Immunizations Vaccine Route Administration Date Status Comme nts Zostavax (Shingles) SC Subcutaneous 03/25/2016 Administered SHINGRIX IM Intramuscular 01/01/2023 Administered SHINGRIX IM Intramuscular 07/04/2023 Administered Prevnar PCV-20 (Pneumococcal conjugate 20) IM Intramuscular 12/12/2021 Administered Influenza-Fluzone 3+years (NON-MEDICARE) IM Intramuscular 12/02/2016 Administered FLUZONE 6MO - OLDER IM Intramuscular 11/18/2018 Administered FLUZONE 6MO - OLDER IM Intramuscular 11/23/2022 Administered Flublok IM Intramuscular 11/04/2019 Administered Flublok IM Intramuscular 12/12/2021 Administered Arexvy IM Intramuscular 01/01/2023 Administered Adacel (Tdap) IM Intramuscular 05/29/2018 Administered 11/10/17-injection given Problems Problem Type SNOMED Code ICD Code Onset Dates Problem Status W/U Status Risk Notes Problem Type 2 diabetes mellitus with other specified complication (E11.69) Active confirmed Problem Vitamin B12 deficiency (non anemic) (34130864) Vitamin B 12 deficiency (E53.8) Active confirmed Problem Essential hypertension (85618043) Hypertension, essential (I10) Active confirmed Problem Diverticulitis (73319455) Diverticulitis (K57.92) Active confirmed Problem Hyperlipidemia (41762750) Hyperlipidemia, unspecified (E78.5) Active confirmed Problem Type II diabetes mellitus well controlled (957286077) Diabetes type 2, controlled (E11.9) Active confirmed Problem Osteoarthritis of knee (657911448) Primary osteoarthritis of left knee (M17.12) Active confirmed Problem History of polyp of colon (situation) (576936288) History of colon polyps (Z86.010) Active confirmed Problem Anemia (491581956) Anemia, unspecified type (D64.9) Active confirmed Problem Sacroiliitis (82663928) Sacroiliitis (M46.1) Active confirmed Problem Left rotator cuff syndrome (012856378186878) Rotator cuff syndrome of left shoulder (M75.102) Active confirmed Problem Reflux gastritis (31698168) Reflux gastritis (K29.60) Active confirmed Problem Type II diabetes mellitus without complication (488529125) Type 2 diabetes mellitus without complication, without long-term current use of insulin (E11.9) Active confirmed Problem Primary hypertension (00158548) Primary hypertension (I10) Active confirmed Encounters Encounter Location Date Provider Diagnosis [facility] [place] [address] [facility] [address] [place] [address] 05/10/2024 Provider Migration [facility] ELLIOTT [address] [facility] [address] [place] [address] 01/01/2024 [facility] [place] [address] [place], [place] [address] 12/27/2023 dEwin [facility] [place] [address] [facility] [address] [place], [place] [address] 02/06/2024 Edwin Leigh Plan Of Treatment Pending Test Test Name Order Date Occupational Therapy : Eval & Treatment 09/11/2016 H-CMP 11/19/2012 H-LIPID PANEL 11/19/2012 C-CBC 05/15/2014 C-CBC 05/29/2018 C-CMP 05/29/2018 C-CMP 05/15/2014 C-CMP 07/09/2013 C-LIPID PANEL 05/15/2014 C-LIPID PANEL 05/29/2018 C-LIPID PANEL 07/09/2013 C-FOLATE 08/15/2019 C-IRON 08/15/2019 C-VITAMIN B12 05/29/2018 C-VITAMIN B12 05/15/2014 C-HGBA1C 07/09/2013 C-HGBA1C 05/15/2014 C-HGBA1C 05/29/2018 Insurance Providers Payer Name Payer Address Payer Phone Subscriber Number Group Number Insured Name Patient Relationship to Insured Coverage Start Date Coverage End Date [facility] [address] [place] [address] [phone] [id number] Marina Worthington Self - patient is the insured Medications Administered Medication Instructions Date of Administration Dosage Notes Kenalog 40mg 09/08/2019 40 mg TRIAMCINOLONE 06/10/2021 1 mL left knee, intra-articular Medical (General) History Medical History History ICD Code type II diabetes Hypertension hyperlipidemia c-scopes every 5 years - most recent 4/2 1 with isolated tubular adenoma normal mammogram 09/2019 and 10/2021 and and 10/30 Mild osteopenia on DEXA scan 12/27 Surgical History Surgery Date(Month/Year) Breast Reduction 2002 Partial Hysterectomy 2007 Colonoscopy- normal 2016 Hospitalization History Reason Date(Month/Year) Partial Hysterectomy 2007
--- OUTSIDE RECORDS SUMMARY | 2024-11-26 09:12 | XMS_ITS | Encounter Summary ---
Author Organization [employer] ([place], [place], [place], [place]) Address [address] [place] [address] Care Team Providers Care Drawer In Hand Name Role Phone Wilberto Carias MD Primary Care Provider + Encounter Details Date Type Department Care Team (Latest Contact Info) Description 11/04/2024 Travel Social History Tobacco Use Types Packs/Day Years Used Date Smoking Tobacco: Never Assessed Family and Community Support Answer Carlos e Recorded Help with Day to Day Activities Not on file 02/23/2023 Feeling Lonely or Isolated Not on file 02/23 Educational Attainment Answer Date Rj rded Speak language other than Lithuanian at home Not on file 02/23/2023 Want [...] PM CDT documented as of this encounter Plan of Treatment Upcoming Encounters Date Type Department Care Team (Late Contact Info) Description 11/09/2025 11:45 AM EDT Appointment [address] [place] [phone] documented as of this encounter Visit Diagnoses Not on filedocumented in this encounter Care Teams Drawer In Hand Relationship Specialty Start Date End Date Wilberto Carias MD [address] [place] [id number] PCP - General Internal Medicine 11/04/24 documented as of this encounter
--- OUTSIDE RECORDS SUMMARY | 2024-11-26 09:12 | XMS_ITS | Encounter Summary ---
Author Organization [employer] ([place], [place], [place], [place]) Address [address] [place] [address] Care Team Providers Care Nuclear Fuels Reclamation Engineer Name Role Phone Wilberto Carias MD Primary Care Provider + Reason for Referral * Mammography (Routine) - Authorized Specialty Diagnoses / Procedures Referred By Contac t Referred To Contact Radiology Diagnoses Visit for screening mammogram Procedures MM digital mammo screen with elba bilateral Wilberto Carias MD [address] [address] Phone: tel: fax: [address] [place] [phone] Phone: tel: fax: Referral ID Status Reason Start Date Expiration Date V isits Requested Visits Authorized [id number] Authorized 11/09/2025 11/09/2026 1 1 Encounter Details Date Type Department Care Team (Late st Contact Info) Description 11/04/2024 Outside Orders [address] [place] [phone] Wilberto Carias MD [address] [address] Visit for screening mammogram (Primary Dx) Social History Tobacco Use Types Packs/Day Years Used Date Smoking Tobacco: Never Assessed Family and Community Support Answer Carlos e Recorded Help with Day to Day Activities Not on file 02/23/2023 Feeling Lonely or Isolated Not on file 02/23 Educational Attainment Answer Date Rj rded Speak language other than Hong Konger at home Not on file 02/23/2023 Want [...] Info) Description 11/09/2025 11:45 AM EDT Appointment [address] [phone] Scheduled Orders Name Type Priority Associated Diagnoses Orde r Schedule MM digital mammo screen with elba bilateral Imaging Routine Visit for screening mammogram Expected: 11/09/2025, Expires: 11/09/2026 documented as of this encounter Visit Diagnoses Diagnosis Visit for screening mammogram- Primary documented in this encounter Care Teams Nuclear Fuels Reclamation Engineer Relationship Specialty Start Date End Date Wilberto Carias MD [address] [place] [address] PCP - General Internal Medicine 11/04/24 documented as of this encounter
--- OUTSIDE RECORDS SUMMARY | 2024-11-26 09:12 | XMS_ITS | Encounter Summary ---
Author Organization [employer] ([place], [place], [place], [place]) Address [address] [place] [address] Care Team Providers Care Career Development Engineer Name Role Phone Edwin Leigh MD Primary Care Provider [phone] Reason for Referral * Mammography (Routine) - Closed Specialty Diagnoses / Procedures Referred By Contac t Referred To Contact Radiology Diagnoses Visit for screening mammogram Procedures MM digital mammo screen with elba bilateral Edwin Leigh MD [address] [place] [address] Phone: tel: fax: [address] [place] [phone] Phone: tel: fax: Referral ID Status Reason Start Date Expiration Date Visits Re quested Visits Authorized [id number] Closed 11/04/2024 11/04/2025 1 1 Encounter Details Date Type Department Care Team (Late st Contact Info) Description 11/02/2023 Outside Orders [address] [place] [phone] Edwin Leigh MD [address] [place] [address] Visit for screening mammogram (Primary Dx) Social History Tobacco Use Types Packs/Day Years Used Date Smoking Tobacco: Never Assessed Family and Community Support Answer Carlos e Recorded Help with Day to Day Activities Not on file 02/23/2023 Feeling Lonely or Isolated Not on file 02/23 Educational Attainment Answer Date Rj rded Speak language other than Bolivian at home Not on file 02/23/2023 Want help with school or training Not on file 02/23/2023 Substance Use Answer Date Recorded Used prescription meds for non-medical reasons N ot on file 02/23/2023 Used illegal drugs past 12 months Not on file 02/23/2023 Comments Unknown Sex and Gender Information Value Date Recorded Sex Assigned at Female 08/02/2021 3:31 PM CDT Legal Sex Female 3:31 PM CDT Gender Identity Female 08/02/2021 3:31 PM CDT Sexual Orientation Straight 10/17/2024 12 :32 PM CDT documented as of this encounter Plan of Treatment Upcoming Encounters Date Type Department Care Team (Late st Contact Info) Description 11/09/2025 11:45 AM EDT Appointment [facility] Breast [address] [phone] documented as of this encounter Results * MM digital mammo screen with elba bilateral (11/04/2024 10:58 AM EDT) Anatomical Region [...] the next mammogram. At our facility, a [place] marker is positioned over a visible skin lesion and a linear marker is used to indicate a scar. A triangular marker is placed on a self reported palpable finding. Note: Mammography does not detect approximately 10-15% of breast cancers. The [employer] recommends supplemental yearly screening [...] cancer. COMPARISON STUDY: 2023 through 2016 from [facility] FINDINGS: Craniocaudal and mediolateral oblique images [...] Diagnoses Diagnosis Visit for screening mammogram- Primary Visit for screening mammogram documented in this encounter Care Teams Career Development Engineer Relationship Specialty Start Date End Date Edwin Leigh MD [address] [place] [address] PCP - General Adolescent Medicine 10/31/22 11/03/24 documented as of this encounter
--- OUTSIDE RECORDS SUMMARY | 2024-11-26 09:12 | XMS_ITS | Encounter Summary ---
Author Organization [facility] Address [address] [place] [id number] Care Team Providers Care Customs Inspector Name Role Phone Wilberto Carias DO Primary Care Provider + Encounter Details Date Type Department Care Team (Late st Contact Info) Description 10/30/2024 Patient rounding ([facility] only) [facility] [address] [facility] [address] [place] [phone] Eliazar Silver MD [address] [place] [id number] [place] [phone] Social History Tobacco Use Types Packs/Day Years [...] PM EDT documented as of this encounter Progress Notes * Laney Dan RegSched Rep - 10/30/2024 11:46 AM EDT A [employer] message has been sent to the patient for PATIENT ROUNDING with [facility]. documented in this encounter Plan of Treatment Upcoming Encounters Date Type Department Care Team (Late st Contact Info) Description 11/02/2025 11:00 AM EDT Office Visit [facility] [facility] [address] [place] [phone] Eliazar Silver MD [address] [facility] [address] [place] [address] documented as of this encounter Visit Diagnoses Not on filedocumented in this encounter Care Teams Customs Inspector Relationship Specialty Start Date End Date Wilberto Carias DO [address] [facility] [address] [place] [address] PCP - General Internal Medicine 10/27/24 documented as of this encounter
--- OUTSIDE RECORDS SUMMARY | 2024-11-26 09:13 | XMS_ITS | Encounter Summary ---
Author Organization [facility] Address [address] [place] [address] Care Team Providers Care Film Or Tape Librarian Name Role Phone Wilberto Carias DO Primary Care Provider + Encounter Details Date Type Department Care Team (Latest Contact Info) Description 10/29/2024 Travel Social History Tobacco Use Types Packs/Day [...] PM EDT documented as of this encounter Plan of Treatment Upcoming Encounters Date Type Department Care Team (Late st Contact Info) Description 11/02/2025 11:00 AM EDT Office Visit [facility] [address] [phone] Eliazar Silver MD [address] [address] documented as of this encounter Visit Diagnoses Not on filedocumented in this encounter Care Teams Film Or Tape Librarian Relationship Specialty Start Date End Date Wilberto Carias DO [address] [place] [phone] PCP - General Internal Medicine 10/27/24 documented as of this encounter
--- NOTE | 2024-11-26 09:15 | XR_ITS ---
FINAL REPORT CLINICAL HISTORY: Osteoporosis COMPARISON: 12/30/2021 FINDINGS: Using L1-4, the bone mineral density of the spine is 1.090 g/cm2, corresponding to T-score of 0.4. The bone mineral density change versus baseline is 1.2%. Using the left hip, the bone mineral density of the femoral neck is 0.723 g/cm2, corresponding to a T-score of -1.1. The bone mineral density change versus baseline is -2.2%. Using the right hip, the bone mineral density of the femoral neck is 0.736 g/cm2, corresponding to a T-score of -1.0. The bone mineral density change versus baseline is 1.3%. NOTE: T-score: Standard deviation compared with peak bone mass of young adult mean. *Following the recommendations of the International Society of Bone densitometry, classification of hip BMD is based on the lower of two T-scores; total hip or femoral neck. IMPRESSION: Normal bone mineral density of the lumbar spine. Diminished bone mineral density of the bilateral hips, compatible with osteopenia. Reviewed, Interpreted and Dictated by Kristina Hoover MD Transcribed by Kristina Castro Authenticated and [facility]
== END 2024-11-26 23:59 | disposition home or self-care (01) ==
LOC: RAD 08:59
PROVIDERS: PCP Internal Medicine; Visit Provider Internal Medicine
DX: M85.88 Other specified disorders of bone density and structure, other site (principal); Z78.0 Asymptomatic menopausal state
CPT/HCPCS: 77080